=== PATIENT | male | born 1965 | race Caucasian/White ===

== ENCOUNTER 2020-01-12 02:11 | Outpatient (CLI) | payer OTHER, SELFPAY ==
--- NOTE | 2020-01-12 | DI.MRI_ITS ---
EXAM: MR UPPER JOINT RT WO CLINICAL HISTORY: EVALUATE CHRONIC PAIN, S43.421. TECHNIQUE: Multiplanar multisequence MRI was performed. COMPARISON: No exams were available for comparison FINDINGS: There is moderate spurring at the AC joint. There is some fluid within the AC joint. A small amount of fluid is seen in the subacromial-subdeltoid bursa and in the subcoracoid bursa. There is no visi ble joint effusion. There is abnormal high signal within the supraspinatus tendon as well as tendon thickening. There is a small focal undersurface tear. There is mild muscular atrophy. The infraspi natus, subscapularis and biceps tendons appear intact. No gross labral defects are seen. IMPRESSION: Supraspinatus tendinosis with small superimposed undersurface tear. DATA REPOSITORY:
== END 2020-01-12 02:31 ==
PROVIDERS: Visit Provider Specialist
DX: M25.511 Pain in right shoulder (principal); G89.29 Other chronic pain; M75.81 Other shoulder lesions, right shoulder; M75.101 Unspecified rotator cuff tear or rupture of right shoulder, not specified as traumatic; S43.421A Sprain of right rotator cuff capsule, initial encounter
CPT/HCPCS: 73221

== ENCOUNTER 2020-02-28 16:59 | Emergency (ER) | payer MEDICAID, SELFPAY ==
[2020-02-28] VITALS (26 sets, daily range): BP systolic 111–178; BP diastolic 70–121; PULSE 78–110; RESP 8–23; TEMP 36.7; O2SAT 90–100
[2020-02-28] MEDS: HYDROmorphone 2 MG/ML VIAL 1 MG IVP ×2 (17:21→17:41)
[2020-02-28] MEDS: Ondansetron 4 MG/2 ML VIAL IVP (17:22)
[2020-02-28] MEDS: Normal Saline 1,000 ML 1000 ML IV ×2 (17:22→18:03)
--- NOTE | 2020-02-28 17:25 | ED.GENADUL_ITS ---
Discharge Plan Disposition Patient Disposition: HOME Condition: Stable Discharge Details Chief Complaint: Abd Prob Clinical Impression: Epigastric abdominal pain Primary Care Provider: Staci Arreaga ED Provider: Margie Monroy Home Meds and New Rx's Prescriptions: New omeprazole 20 mg capsule,delayed release(DR/EC) 20 mg PO DAILY Qty: 7 RF: 0 sucralfate [Carafate] 1 gram tablet 1 gm PO BID Qty: 14 RF: 0 No Action metformin 1,000 mg Tablet 1,000 mg BID RF: 0 lisinopril 5 mg Tablet 5 mg DAILY RF: 0 glipizide 5 mg Tablet 5 mg DAILY RF: 0 Discharge Instructions Instructions: Epigastric Pain (ED) Additional Instructions: Drink plenty of fluids. Use medications as prescribed for possible ulcerative disease. Follow-up closely with your primary care doctor. Call for prompt follow-up. Please follow-up regarding the elevation of your liver function tests we discussed today Please follow-up tomorrow with ultrasound of your right upper quadrant to be sure gallbladder appears normal. Return to the emergency room immediately for increasing pain, return or worsening pain as discussed Medical Decision Making This is a 54-year-old patient presenting to the emergency room for acute complaints of abdominal pain. Patient reports 30 minutes abdominal pain which began is mild pain in the epigastric and became extremely sharp. Patient reports 30 minutes of 10 out of 10 abdominal pain in the epigastrium without any radiating symptoms. Patient denies radiation to his back, patient denies radiation toward other portions of his abdomen. Patient does report his abdomen feels somewhat distended. Patient denies headache or dizziness. Denies chest pain, difficulty breathing shortness of breath or wheezing. Patient denies nausea or vomiting associated. No hematuria or change in bowels recently. Patient has been eating and drink without throughout the day. Patient reports no history of similar. Patient reports his pain is 10 out of 10 at this time. Patient presents to the emergency room visibly uncomfortable. Patient reports onset of pain while he was sitting. No recent exertion. No recent abdominal pain trauma. Patient reports he does have a history of diabetes as well as history of smoking, patient no longer smokes. Patient takes glipizide, metformin as well as lisinopril. Patient does report he occasionally drinks a lcohol but has not drank in the last 3 days. Patient denies being a heavy drinker. Patient denies any other drug use. No other concerns or complaints at this time. On initial evaluation in the emergency room patient is again visibly uncomfortable, hypertensive complaining of mild distention of the abdomen and pain in the epigastric area. Will obtain IV access, plan to CT immediately given his complaints of pain and initial exam. My immediate concern is related to possible abdominal aorta aneurysm or rupture, versus perforated viscus. Patient denies any chest pain with difficulty breathing or shortness of breath. We will plan to obtain EKG when returning from CT as CT is able to take the patient now. IV access obtained. Dr. Santiago Evangelista did attempt bedside ultrasound prior to CT which was difficult given patient's movement prior to pain medication. Patient provided 1 mg of Dilaudid for comfort during imaging as well as Zofran. IV fluids began, 1 L of normal saline bolus. When patient returned from CT a second IV was obtained and a second liter of saline provided. Patient still obviously uncomfortable complaining of some improved pain now a 6 out of 10. A second milligram of Dilaudid was provided for patient's comfort. Patient reports significantly more comfortable after second milligram of Dilaudid. CT which was read stat reveals no acute findings or acute aortic pathology. Incidental finding of fatty liver and gallstones present. No pericolic cystic edema present. No surgical emergencies noted in the abdomen or chest. Patient's labs revealed mild leukocytosis of 12.68 with no previous comparisons in the computer. Sodium 133, anion gap of 12, blood sugar 290. Patient's LFTs are mildly elevated AST noted to be 81, ALT 188, alk phos 124. Normal bi lirubin. Lipase normal Patient's troponin is normal. Patient's EKG reveals a heart rate of 90, sinus rhythm, first-degree AV block with a HI interval of 220, frequent ectopic beats present. No specific ST segment changes or evidence of ST elevation [place]. This was reviewed with Dr. Santiago Evangelista. No previous EKG for comparison Reevaluation of patient reveals continued improvement. Will observe for several hours to be sure pain is not returning. Reevaluation reveals mild 2 out of 10 abdominal pain which is reported in the epigastrium. No significant change in sites of pain. Patient reports some mild cramping type pain. Will trial GI cocktail. GI cocktail improved pain from 2 out of 10 to 1 out of 10. Patient feels comfortable discharge home. We did discuss observation admission given his initial presentation to the emergency room however he feels comfortable being discharged home at this time, lives locally and can return for any worsening or return of pain. We will plan to provide prescription for Carafate as well as omeprazole given his reported improvement with GI cocktail for concern of possible ulcerative etiology of his epigastric pain. We will also plan to sched ule outpatient ultrasound for tomorrow to identify his gallbladder and be sure there is no acute findings however CT is reassuring at this time. Patient agrees with this plan of care. Patient feels hungry, would like to go home and eat dinner. Recommended bland diet. Patient's blood pressure significantly improved since arrival to the emergency room. Heart rate between the 90s and low 100s persists despite IV fluid. Patient's O2 saturations maintained and has no new complaints of chest pain. I doubt ACS given patient's presentation to the emergency room and initial troponin negative. We did discuss the possibility staying for second troponin however patient feels this is unnecessary as his complaints predominantly have been associated with his abdomen and pain was reproducible with palpation of the abdomen. Recommended close monitoring of his blood sugar. Patient feels stable for discharge home at this time. Disposition decision made weighing the risks and benefits of hospitalization versus outpatient treatment. The risk of frequent there are decompensation and the patient's wishes. Patient does desire discharge home at this time with plan to return for worsening symptoms if needed. Nothing to indicate intrathoracic or intra-abdominal emergency at this time. The patient was stable and requested discharge. Prior to discharge, my usual and customary return precautions were reviewed with the patient - this included follow-up instructions and reasons to return to the Emergency Department if conditions worsens, does not improve as expected, or other new concerns arise. HPI General Date/Time Provider Initiated Documentation: 02/28/20 17:02 . HPI Narrative: 54-year-old patient with a history of diabetes and an long history of smoking presents to the emergency room for complaints of severe acute onset of epigastric abdominal pain. Patient reports abdominal pain noted in the epigastrium. Patient reports mild discomfort followed by sharp pain which is been constant since. Patient does report he feels mildly distended at this time. Patient denies associated headache or dizziness. Patient does report he is feeling anxious. Denies associated chest pain. Denies any radiating pain into his back. Patient denies any history of similar. Patient reports onset of pain while at rest. No previous injury or trauma. Patient reports prior to onset of pain he was feeling well. Patient denies any recent urinary or bowel changes. Patient denies any numbness, tingling or weakness of extremities. Patient reports pain is severe 10 out of 10 at this time. Related Data Home Medications Medication Instructions Recorded Confirmed glipizide 5 mg DAILY 02/28/20 02/28/20 lisinopril 5 mg DAILY 02/28/20 02/28/20 metformin 1,000 mg BID 02/28/20 02/28/20 omeprazole 20 mg PO DAILY #7 cap 02/28/20 sucralfate [Carafate] 1 gm PO BID #14 tab 02/28/20 Previous Rx's Medication Instructions Recorded omeprazole 20 mg PO DAILY #7 cap 02/28/20 sucralfate [Carafate] 1 gm PO BID #14 tab 02/28/20 Allergies Allergy/AdvReac Type Severity Reaction Status Date / Time No Known Allergies Allergy Unverified 02/28/20 18:55 General Stated Complaint: Abd Prob BLANCA: 2 Review of Systems All systems reviewed & are unremarkable except as noted in HPI and below Constitutional Constitutional: Denies chills, Denies fatigue, Denies fever(s), Denies headache(s) and Denies malaise ENT Ears, Nose, Mouth, and Throat: Denies vertigo, Denies dizziness and Denies headache(s) Cardiovascular Cardiovascular: Denies chest pain, Denies syncope, Denies lightheadedness, Denies palpitations and Denies dyspnea Respiratory Respiratory: Denies cough and Denies dyspnea Gastrointestinal Gastrointestinal: Reports abdominal pain (Sharp, epigastric), Reports bloating, Denies constipation, Denies diarrhea, Denies nausea and Denies vomiting Genitourinary Genitourinary: Denies hematuria, Denies difficulty urinating, Denies urinary frequency, Denies urinary hesitancy and Denies urinary urgency Neurologic Neurologic: Denies vertigo, Denies dizziness, Denies syncope and Denies headache(s) Endocrine Endocrine: Denies fatigue and Denies palpitations [facility] Medical History Diabetes mellitus (Chronic) Hypertension (Chronic) Exam Narrative Exam Narrative: CONST: Patient in pain, visibly uncomfortable. Well hydrated. Alert and oriented. HENMT: Head nomocephalic, normal to inspection. Atraumatic. Hearing grossly normal. Nose normal to inspection. No rhinnorhea. Normal facial exam. Oral mucosa normal. Tounge normal. Dentition normal. Normal posterior oropharynx. Uvula midline. EYES: General normal appearance. Alignment normal. Eyelids normal. Conjunctiva normal. Sclera normal. NECK: Normal visual inspection. FROM. No lymphadenopathy. Trachea midline. No Midline tenderness. CHEST: Normal insepection of the chest. RESP: Normal respiratory effort. Speaking full sentences. No cough. No wheezing. No retractions. Clear to auscaltation. Breath sound equal and present bilaterally. CARDIO: No JVD. Normal PMI. Regular Rate. Regular Rhythm. Normal peripheral pulses. GI: Normal inspection of abdomen. Central obesity noted, patient reports mild distention. Soft. Moderate epigastric pain with palpation. Bowel sounds present in all 4 quadrants. No rebound. MUSCULOSKELETAL: Normal Gait. FROM of all extremities. Distal neurovascularly intact. Sensation intact distally. No lower extremity edema present SKIN: Normal. Dry. No rashes. NEURO: Alert and awake. Speech clear. PSYCH: Normal affect. Cooperative. Course Vital Signs Vital signs: Vital Signs Temperature 36.7 C 02/28/20 17:08 Pulse 102 H 02/28/20 17:08 Blood Pressure 173/121 H 02/28/20 17:08 Pulse Oximetry 100 02/28/20 17:08 Temperature 36.7 C 02/28/20 17:08 Temperature Source Skin 02/28/20 17:08 Pulse 102 H 02/28/20 17:08 Respiratory Effort Non-Labored 02/28/20 17:12 Blood Pressure 173/121 H 02/28/20 17:08 Blood Pressure Position Sitting 02/28/20 17:08 Pulse Oximetry 100 02/28/20 17:08 Oxygen Delivery Method Room Air 02/28/20 17:08 Oxygen Flow Rate 0 02/28/20 17:08 Pain Level 10 02/28/20 17:22 Comment 02/28/20 17:08
[2020-02-28 17:26] LABS: Abs Immature Grans 0.05 k/cumm (0.0-0.09); Absolute Basophil Count 0.05 k/cumm (0.0-0.2); Absolute Lymphocyte Count 4.17 k/cumm (1.2-3.4); Basophils % 0.4; Eosinophils % 1.6; HCT 45.3 % (40.0-50.0); HGB 16.1 g/dL (13.5-17.5); Immature Grans % 0.4 %; Lymphocytes % 32.9; Mean Corp. HGB Concentration 35.5 g/dL (32.0-36.0); Mean Corpuscular Hemoglobin 28.9 pg (27.0-33.0); Mean Corpuscular Volume 81.2 fL (80-95); Mean Platelet Volume 9.3 fL (8.0-11.0); Monocytes % 8.8; Neutrophils % 55.9; Platelet Count 343 x1000/uL (130-400); RBC 5.58 m/cumm (4.50-6.00); RBC Distribution Width 12.4 % (11.8-14.1); White Blood Cell Count 12.68 k/cumm (4.4-10.8)
[2020-02-28 17:27] LABS: Absolute Monocyte Count 1.12 k/cumm (0.11-0.7); Absolute Neutrophil Count 7.09 k/cumm (1.2-6.7)
[2020-02-28] MEDS: Normal Saline - Diluent 50 ML VIAL IV (17:29)
[2020-02-28] MEDS: Omnipaque 350 MG/ML 100 ML BTL IJ (17:30)
--- NOTE | 2020-02-28 17:30 | DI.CT_ITS ---
EXAM: CT THORAX ABD/PEL CTA TECHNIQUE: CT examination of the chest, abdomen, and pelvis was performed with bolus infusion of 100 cc of Omnipaque 350. COMPARISON: No exams were available for comparison FINDINGS: There is no evidence of a thoracic vascular injury. The lungs are clear. No pneumothorax or pleural effusion. No mediastinal hematoma. No adenopathy in the chest. Tracheobronchial tree appears intact. No evidence of pulmonary embolic disease. No evidence of acute consolidation of the lungs. The liver shows decreased attenuation consistent with hepatic steatosis. The spleen, and pancreas ap pear normal. Gallbladder and bile ducts are normal. Adrenals and kidneys are unremarkable. No evidence of urinary tract injury or obstruction. No abdominal or pelvic vascular injury seen. No abdominal or pelvic adenopathy. No significant abdomi nal wall hernia or hematoma. No focal bowel pathology. IMPRESSION: No significant abnormality of the chest, abdomen, or pelvis. Except for hepatic steatosis. DATA REPOSITORY: All CT scans at this facility are submitted to the National Radiology Data Registry (NRDR) Dose Index Registry (DIR) with the [employer] (A[employer]). RADIATION OPTIMIZATION: All CT scans at this facility use at least one of these dose optimization te chniques: automated exposure control; mA and/or kV adjustment per patient size (includes targeted exa ms where dose is matched to clinical indication); or iterative reconstruction.
[2020-02-28 17:42] LABS: ALT 188 U/L (16-63); AST 81 U/L (15-37); Albumin 4.5 g/dL (3.4-5.0); Alkaline Phosphatase 124 U/L (46-116); BUN 14 mg/dL (7-18); Bilirubin, Total 0.6 mg/dL (0.2-1.0); CREATININE 1.15 mg/dL (0.70-1.30); Calcium 9.6 mg/dL (8.5-10.1); Chloride 96 mmol/L (98-107); Glucose 290 mg/dL (74-106); Lipase 153 U/L (73-393); Potassium 3.9 mmol/L (3.5-5.1); Sodium 133 mmol/L (136-145); Total Protein 8.2 g/dL (6.4-8.2)
[2020-02-28 17:44] LABS: PTT Activated 22.9 sec (21.0-31.4); Prothrombin Time 9.9 sec (9.3-11.0)
--- NOTE | 2020-02-28 17:57 | DI.VRAD_ITS ---
PROCEDURE INFORMATION: Exam: CT Angiography Chest With Contrast Exam date and time: 02/28/2020 17:16 Age: 54 years old Clinical indication: Right-sided chest pain; Localized; Right upper quadrant (ruq); Patient HX: Severe abdominal pain, ruq most pain. No back pain. No abdominal surgeries. TECHNIQUE: Imaging protocol: Computed tomographic angiography of the chest with intravenous contrast. 3D rendering: MIP and/or 3D reconstructed images were created by the technologist. Radiation optimization: All CT scans at this facility use at least one of these dose optimization techniques: automated exposure control; mA and/or kV adjustment per patient size (includes targeted exams where dose is matched to clinical indication); or iterative reconstruction. Contrast material: OMNIPAQUE 350; Contrast volume: 100 ml; Contrast route: IV; COMPARISON: No relevant prior studies available. FINDINGS: Pulmonary arteries: No pulmonary emboli. Aorta: No aortic aneurysm. No aortic dissection. Lungs: No airspace consolidation. No suspicious pulmonary nodules or mass lesions. Pleural space: No pneumothorax. No pleural effusion. Heart: No cardiomegaly. No pericardial effusion. Lymph nodes: Mildly prominent lymph nodes paratracheal thoracic inlet measuring up to 12 mm short axis. Subcarinal lymph node mildly prominent 11 mm short axis. Bones/joints: Minor degenerative changes in the spine. No acute fracture or subluxation. Soft tissues: No suspicious lesions. IMPRESSION: 1. No acute findings. 2. Additional findings as described. PROCEDURE INFORMATION: Exam: CT Angiography Abdomen and Pelvis With Contrast Exam date and time: 02/28/2020 17:16 Age: 54 years old Clinical indication: Right-sided chest pain; Localized; Right upper quadrant (ruq); Patient HX: Severe abdominal pain, ruq most pain. No back pain. No abdominal surgeries. TECHNIQUE: Imaging protocol: Computed tomographic angiography of the abdomen and pelvis with intravenous contrast material. 3D rendering: MIP and/or 3D reconstructed images were created by the technologist. Radiation optimization: All CT scans at this facility use at least one of these dose optimization techniques: automated exposure control; mA and/or kV adjustment per patient size (includes targeted exams where dose is matched to clinical indication); or iterative reconstruction. Contrast material: OMNIPAQUE 350; Contrast volume: 100 ml; Contrast route: IV; COMPARISON: No relevant prior studies available. FINDINGS: Aorta: Extremely minor aortic atherosclerosis. No aneurysm or dissection. Celiac trunk and mesenteric arteries: No occlusion or significant stenosis. Renal arteries: Main and accessory right renal arteries are patent. Main and accessory left renal arteries are patent. Right iliac arteries: No occlusion or significant stenosis. Left iliac arteries: No occlusion or significant stenosis. Liver: Mildly heterogeneous fatty liver. No hepatic masses. Gallbladder and bile ducts: Cholelithiasis. No pericholecystic edema. Pancreas: No mass. No ductal dilation. Spleen: No splenomegaly. Adrenals: No mass. Kidneys and ureters: Tiny right renal probable cyst. No renal masses or hydronephrosis bilaterally. Stomach and bowel: No obstruction. No mucosal thickening. Appendix: No evidence of appendicitis. Intraperitoneal space: No free air. No significant fluid collection. Lymph nodes: No enlarged lymph nodes. Bladder: No mass. Reproductive: Unremarkable as visualized. Bones/joints: Mild degenerative changes in the spine. Mild to moderate distal lumbar neural foraminal stenosis. No acute fracture or subluxation. Soft tissues: No suspicious lesions. IMPRESSION: 1. No acute findings. No acute aortic pathology 2. Incidental findings include fatty liver, cholelithiasis. Dictated and Authenticated by: Radha Magallon MD. Ordering:NANO Hanson MD
[2020-02-28 18:02] LABS: Troponin I < 0.05 ng/Ml (<0.06)
--- NOTE | 2020-02-29 08:48 | NUR.NOTE ---
Nursing Note: REFERRAL FAXED TO [facility] FOR FOLLOW UP. ABEBE KU
== END 2020-02-28 21:14 | disposition home or self-care (01) ==
PROVIDERS: Emergency Provider Physician Assistant; PCP Nurse Practitioner Family
DX: R10.13 Epigastric pain (principal); E11.9 Type 2 diabetes mellitus without complications; I10 Essential (primary) hypertension; Z79.84 Long term (current) use of oral hypoglycemic drugs
CPT/HCPCS: 36415; 74177; 80053; 83690; 86850; 86900; 86901; 93005; 96361; 96374; 96375; 96376; 99285; 84484; 85025; 85610; 85730; 93010; J2405; J3490

== ENCOUNTER 2020-02-29 09:58 | Outpatient (CLI) | payer MEDICAID, SELFPAY ==
--- NOTE | 2020-02-29 | DI.US_ITS ---
EXAM: US ABDOMEN LIMITED CLINICAL HISTORY: RUQ PAIN, CHOLELITHIASIS ON CT, ? GB DISEASE TECHNIQUE: Ultrasound performed using standard protocol. COMPARISON: No exams were available for comparison FINDINGS: Right upper quadrant ultrasound was performed. Note is made of cholelithiasis. No gallbladder wall thickening, biliary dilatation, or pericholecystic fluid collection. There are findings consistent w ith hepatic steatosis with decreased through transmission of the hepatic parenchyma and increased ech ogenicity. Dependent portions of the liver nonvisualized. Right kidney is unremarkable. Pancreas poorly visualized. Abdominal aorta and IVC poorly visualized . IMPRESSION: Cholelithiasis and hepatic steatosis. No other significant findings. DATA REPOSITORY:
[2020-02-29 14:42] LABS: Abs Immature Grans 0.02 k/cumm (0.0-0.09); Absolute Basophil Count 0.04 k/cumm (0.0-0.2); Absolute Eosinophil Count 0.14 k/cumm (0.0-0.7); Absolute Lymphocyte Count 2.36 k/cumm (1.2-3.4); Absolute Monocyte Count 0.78 k/cumm (0.11-0.7); Basophils % 0.5; Eosinophils % 1.7; HCT 43.4 % (40.0-50.0); HGB 15.6 g/dL (13.5-17.5); Immature Grans % 0.2 %; Lymphocytes % 28.8; Mean Corp. HGB Concentration 35.9 g/dL (32.0-36.0); Mean Corpuscular Hemoglobin 29.4 pg (27.0-33.0); Mean Corpuscular Volume 81.7 fL (80-95); Mean Platelet Volume 9.1 fL (8.0-11.0); Monocytes % 9.5; Neutrophils % 59.3; Platelet Count 311 x1000/uL (130-400); RBC 5.31 m/cumm (4.50-6.00); RBC Distribution Width 12.4 % (11.8-14.1); White Blood Cell Count 8.19 k/cumm (4.4-10.8)
[2020-02-29 14:43] LABS: Absolute Neutrophil Count 4.86 k/cumm (1.2-6.7)
[2020-02-29 14:52] LABS: Prothrombin Time 10.1 sec (9.3-11.0)
[2020-02-29 14:59] LABS: ALT 214 U/L (16-63); AST 125 U/L (15-37); Albumin 4.3 g/dL (3.4-5.0); Alkaline Phosphatase 119 U/L (46-116); Anion Gap 9.5 mmol/L (3-11); BUN 10 mg/dL (7-18); Bilirubin, Total 0.8 mg/dL (0.2-1.0); CO2 25.5 mmol/L (21.0-32.0); CREATININE 0.97 mg/dL (0.70-1.30); Calcium 9.1 mg/dL (8.5-10.1); Chloride 98 mmol/L (98-107); Glucose 304 mg/dL (74-106); Lipase 125 U/L (73-393); Potassium 4.1 mmol/L (3.5-5.1); Sodium 133 mmol/L (136-145); Total Protein 8.1 g/dL (6.4-8.2)
== END 2020-02-29 10:18 ==
PROVIDERS: Surgery; PCP Nurse Practitioner Family; Visit Provider Physician Assistant
DX: R10.11 Right upper quadrant pain (principal); R10.13 Epigastric pain; K80.20 Calculus of gallbladder without cholecystitis without obstruction; K76.0 Fatty (change of) liver, not elsewhere classified
CPT/HCPCS: 36415; 80053; 83690; 76705; 85025; 85610

== ENCOUNTER 2020-03-15 08:27 | Outpatient (CLI) | payer MEDICAID, SELFPAY ==
[2020-03-16 18:38] LABS: COVID-19 RT-PCR UVMMC Result Negative (Negative)
== END 2020-03-15 08:47 ==
PROVIDERS: PCP Nurse Practitioner Family; Visit Provider Surgery
DX: Z11.59 Encounter for screening for other viral diseases (principal); Z01.818 Encounter for other preprocedural examination
CPT/HCPCS: U0003

== ENCOUNTER 2020-03-21 11:58 | Inpatient (IN) | payer MEDICAID, SELFPAY ==
[2020-03-21] VITALS (13 sets, daily range): BP systolic 128–172; BP diastolic 74–102; PULSE 75–94; RESP 9–20; TEMP 36–37.7; O2SAT 95–100
[2020-03-21] MEDS: Acetaminophen 500 MG TAB 1000 MG PO (07:51)
[2020-03-21] MEDS: Gabapentin 300 MG CAP PO (07:52)
[2020-03-21] MEDS: Lactated Ringers 1,000 ML 100 ML IV ×2 (08:00→09:56)
[2020-03-21] MEDS: PIPERACILLIN/TAZO 4.5 GM in Normal Saline 100 ML IVPB ×3 (09:05→20:02)
--- NOTE | 2020-03-21 11:23 | GB_PTH ---
PATIENT: Santiago Hansen LOC: [facility] Hoffman#:[id number] AGE/SX: 54/M ROOM: RE03/21/[address]: Evelia Barber : 1965 BED: A DIS: 03/22/2020 SPEC #: [id number] RECD: 03/21/20 13:01 STATUS: AMALIA RETobias #: [id number] NBA: 03/21/20 11:[address]: Evelia Barber DEPT: Surgical Specimen RECD BY: Brown Enriquez ENTERED: 03/21/20 13:01 SP TYPE: GB OTHR DR: Staci Arreaga Tissues: 1 - GALLBLADDER Procedures: GROSS AND MICRO LEVEL 3 Comments: [id number]
--- NOTE | 2020-03-21 11:32 | NUR.NOTE ---
1130: Informed by charge nurse, Kateryna Meza RN that OR called out and pt. was going to be admitted. Charge nurse contacted ride. This nurse took pt. belongings, which included a cell phone, wallet,glasses, medical folder, clothing, shoes and drinks pt. brought to PACU and gave them to Melinda Baird RN.Nursing Note:
--- NOTE | 2020-03-21 12:13 | ROE_ITS ---
Date of service: 03/21/20 Time of Service: 12:13 Operative Note Operative Note DATE OF PROCEDURE: 03/21/20 PRE-OP DIAGNOSIS: chronic fredi w/ stones POST-OP DIAGNOSIS: same low grade infection still present. PROCEDURE: lap fredi SURGEON: Felicia Messina [employer] OPERATOR: Felicia Dukes ANESTHESIA: GETA and local ESTIMATED BLOOD LOSS: 25 PATHOLOGY: other COMPLICATIONS: None Patient was transported to: PACU Patient's condition: stable Procedure Description: INDICATIONS: acute on chronic cholecystitis, cholelithiasis and is here today for laparoscopic cholecystectomy. Informed consent was obtained, explaining risks and benefits of the procedure including but not limited to bleeding, infection, pneumonia, blood clots, possible damage to bowel, bladder, blood vessels, bile ducts, possible open procedure, complications of general anesthesia and other unforetold complications. PROCEDURE: The patient agrees and is brought to the operative room suite and placed in supine position. Anesthesia was administered per the Department of Anesthesia. The patient did receive IV antibiotics. NG tube and Warren catheter are placed. The patient was prepped and draped in the usual sterile fashion using DuraPrep scrub solution. Pause for the cause was done. 20 mL of 1% buffered lidocaine was used for local anesthetization. A stab incision was made in the umbilicus and the Verres inserted. Drop test was positive and insufflation was begun. When 15 mm of pressure was noted on the monitor, the Veress was removed and #5 port inserted. The camera was inserted through the port and shows no damage to underlying structures. A 10 mm port was then placed in the epigastric position under direct visualization following creation of local field blocks as well as two 5 mm ports in the right upper quadrant. The omentum is adhered up to the GB. This is taken down w/ a combination of blunt and sharp dissection. The gallbladder fundus was grasped and retracted towards the right shoulder. Infundibulum was grasped and retracted laterally. The hepat-duodenal ligament is entered- this is thickened and edematous. But it is not woody adn the structure are redily dissected out. however, it is quite friable and bleeds very readily. The cystic duct and artery are dissected out and the most inferior portion of the gallbladder plate is removed from the liver and the critical view of safety was obtained after clearing away all fatty material. Endo Clips were placed across the duct and artery and these structures are divided. The remainder of the gallbladder was excised from the liver bed. The gallbladder was placed in a bag and brought out. Examination of the gallbladder shows indeed the cystic duct and artery to have been divided. The is moderate venous bleeding from the GB bed. This is cauterized and Kalpesh-seal is placed. The remainder of the abdomen was copiously irrigated with a liter of saline. All saline is removed. There is no bleeding or bile leakage from the liver bed or the clips sites. The Aubrey- Ramírez needle was used to close the 10 mm port site with an 0 Vicryl. All ports and instruments are removed. Pneumoperitoneum is evacuated and the port sites are monitored to make sure there is no bleeding at the time of desufflation. Port sites are irrigated and the skin is closed with 4-0 Monocryl in a running subcuticular fashion. Skin glue is applied. The patient tolerated the procedure well without complications, transferred to the recovery room in stable condition. FELICIA MESSINA, DO
[2020-03-21] MEDS: Normal Saline Flush 10 ML SYR IVP (12:44)
[2020-03-21] MEDS: HYDROmorphone 2 MG/ML VIAL IVP ×3 (12:44→13:18)
[2020-03-21] MEDS: HYDROcodone 5/Acetaminophen 325 TAB PO ×2 (14:19→20:02)
[2020-03-21] MEDS: Normal Saline 1,000 ML 125 ML IV (14:19)
[2020-03-21] MEDS: Insulin Aspart 300 UNITS/3 ML PEN SC (17:17)
[2020-03-21] MEDS: metFORMIN 500 MG TAB 1000 MG PO (17:17)
[2020-03-21] MEDS: Ketorolac 30 MG/ML VIAL IVP ×2 (17:18→23:53)
[2020-03-21] MEDS: Normal Saline Flush 10 ML SYR IV ×3 (17:19→23:54)
--- NOTE | 2020-03-21 18:28 | NUR.NOTE ---
Nursing Note:03/21/20 1348: pt transferred from PACU to [facility] via stretcher. hovermat used to transfer pt from stretcher to bed. BP 172/102, will recheck in 15 minutes. pt in 4/10 pain.
--- NOTE | 2020-03-21 22:50 | W.PM.PROGNOT ---
Date of Service Date of service: 03/21/20 Time of Service: 15:18 Subjective Subjective Interval history since last seen: Post Op Note The case is reviewed with the patient; findings and the procedure/surgery were reviewed with the patient. The pt has a low grade infection- probably present since his ED visit. So, I am going to keep him over night for IV abx and pain control. The Patient's condition has been reviewed with the RN. Vitals have all been stable. Pain is controlled. He is tolerating po's. The patient has been able to void since surgery- clear yellow urine in an adequate amount. Antibiotics:zosyn DVT prophylaxis:SCD adn ambulate GI prophylaxis:diet Constipation prophylaxis:MOM PHYSICAL EXAM GENERAL APPEARANCE: Alert, healthy appearance, oriented, in no acute distress SKIN: No rashes. HYDRATION: Well hydrated HEAD, EYES, EARS, NECK, AND THROAT: Head is normocephalic, pupils equal, round, reactive to light and accommodation, ocular movement intact, sclera clear and no jaundice or redness. Dentition intact. No eye pain. No thrush NECK: no sore throat. LUNGS: normal respiration, clear to auscultation Normal chest wall movement. No chest wall pain. HEART: Regular rate and rhythm. NSR and no ST or T waves changes. EXTREMITY: No edema or cyanosis ABDOMEN: dressings are clean dry and intact. appropriate pain at surgical site. + bowel sounds NEURO: no focal neuro deficits. The patient current medical condition and all orders reviewed with nursing. Patient is stable and doing well postOp and continue routine medical care. See orders. FELICIA MESSINA D.O. ? Objective Objective Clinical Data: Vital Signs Temperature 36.4 C L 03/21/20 15:30 Temperature Source Temporal Artery Scan 03/21/20 15:30 Pulse 94 H 03/21/20 15:30 Pulse Rhythm Regular 03/21/20 14:30 Respiratory Rate 18 03/21/20 15:30 Respiratory Effort Non-Labored 03/21/20 14:30 Respiratory Depth Normal 03/21/20 14:30 Respiratory Pattern Normal 03/21/20 14:30 Blood Pressure 156/78 H 03/21/20 15:30 Pulse Oximetry 95 03/21/20 15:30 Oxygen Delivery Method Room Air 03/21/20 15:30 Oxygen Flow Rate 0 03/21/20 15:30 Pain Level 7 04/29/20 20:09 Intake & Output 03/20/20 03/21/20 03/21/20 23:59 11:59 23:59 Intake Total 1100 / 2568.333 1468.333 / 2568.333 Output Total 1250 / 1250 Balance 1100 / 1318.333 218.333 / 1318.333 Weight 112.9 kg Intake: IV 1100 / 2068.333 968.333 / 2068.333 Oral 500 / 500 Output: Urine 1250 / 1250 Other: Urine Color Yellow Yellow Urine Appearance Clear Clear Urine Odor Normal Emesis Description None Voiding Methods Toilet
[2020-03-22] MEDS: PIPERACILLIN/TAZO 4.5 GM in Normal Saline 100 ML IVPB ×2 (02:32→09:13)
[2020-03-22] MEDS: Normal Saline 1,000 ML 125 ML IV (02:32)
[2020-03-22] MEDS: HYDROcodone 5/Acetaminophen 325 TAB PO ×3 (04:05→13:13)
[2020-03-22] MEDS: Ketorolac 30 MG/ML VIAL IVP ×2 (06:27→11:52)
[2020-03-22 08:00] VITALS: BP 136/80; PULSE 80; RESP 18; TEMP 37; O2SAT 95
[2020-03-22] MEDS: Lactobacillus Acidophilus CAP 1 CAP PO ×2 (09:13→13:13)
[2020-03-22] MEDS: metFORMIN 500 MG TAB 1000 MG PO (09:13)
[2020-03-22] MEDS: Lisinopril 5 MG TAB PO (09:13)
[2020-03-22] MEDS: glipiZIDE 5 MG TAB 10 MG PO (09:13)
--- NOTE | 2020-03-22 09:32 | W.PM.DS.N ---
Date of service: 03/22/20 Time of Service: 09:32 DS: Diagnosis Discharge Diagnosis (1) Gallstones without obstruction of gallbladder: Status: Acute Discharge Plan Disposition Patient Disposition: HOME Condition: Good Discharge Details Reason For Visit: ACUTE [place] Admit Date/Time: 03/21/20 11:58 Admit Provider: Evelia Barber Attending Provider: Evelia Barber Primary Care Provider: Staci Arreaga Hospital Course Hospital Course: Patient underwent a laparoscopic cholecystectomy following an episode of acute cholecystitis/cholelithiasis approximately 3 weeks ago. At the time of surgery he was still found to have a mild infection. He was kept overnight and on IV antibiotics he also had moderate bleeding from the gallbladder fossa and was kept overnight to monitor for bleeding. Today he doing well. He is tolerating a low-fat diabetic diet. He is up walking around. He has had no fever or chills. He has had no nausea vomiting. He was able to move his bowels. He said no chest pain shortness of breath or productive cough. He has no calf pain or swelling. He is just discharged home in stable and satisfactory condition. Patient verbalized understanding of all instructions. He is given instructions in wound care activity and warning signs. She will follow-up in the clinic with me in a week. He is given instructions on pain control. If he has any questions or concerns he should contact our office or go to the emergency department after hours. Home Meds and New Rx's Prescriptions: New ibuprofen 600 mg tablet 600 mg PO Q6H PRN (Reason: pain) Qty: 90 RF: 0 hydrocodone-acetaminophen 5-325 mg Tablet 1 tab PO Q4H PRN PRNQty: 15 RF: 0 Continued ondansetron HCl [Zofran] 4 mg tablet 4 mg PO Q6H PRN (Reason: nausea and vomiting) Qty: 10 RF: 0 metformin 1,000 mg Tablet 1,000 mg BID RF: 0 lisinopril 5 mg Tablet 5 mg DAILY RF: 0 glipizide 5 mg tablet 10 mg PO DAILY RF: 0 Discharge Instructions Instructions: Laparoscopic Cholecystectomy (GEN) Additional Instructions: Care after Gallbladder Surgery -You should walk frequently, gradually, increasing the distance. You may climb stairs, just go slowly. -You can take Advil 600mg 4 times a day with food for the first week for pain; you may take your prescription medication as prescribed-in addition to the Advil. Discontinue Advil if it hurts your stomach. Do not take Advil if you are intolerant to aspirin products or have stomach problems. ? Use an ice bag for the first 72 hours. This helps to decrease swelling, which causes pain. It is normal to be more sore/painful and swollen towards the end of the day and first thing in the morning. ? Use milk of magnesia or prune juice to prevent constipation (this is a particular side effect of pain medication). Do not allow yourself to become constipated. ? Avoid fatty or greasy foods; introduce these slowly, with care, after about 1 month. Follow the low-fat diet sheet that will be given to you at the office or hospital. ? Start out eating very small, bland amounts of food. Do not take pain pills on an empty stomach. It is all right if they get wet. They will be removed in the doctor?s office. ? Do not go swimming or sit in a hot tube for two weeks. ? There are no stitches to remove. ? Do not drive your car x72hrs and then only if you have no pain and can move freely. Do not drive if you are taking pain narcotic pain medications. ? You may resume sexual activity whenever pain and soreness subside, usually in 2 weeks. ? Do no lift anything over 5 lbs. for the first 10 days. Minimize strenuous activity for the next two weeks. ? You may return to work in one week, or when you feel able, provided you do not have to do any heavy lifting or prolonged standing. ? You should return to Dr. Barber?s office for a post-op appointment about one week after surgery. Please call the Surgical Clinic at: [phone] to schedule an appointment. My Medications for pain and nausea are: ibuprofen and ultram When to Call the Office: ? If the incision becomes red or swollen, or there is more than a little drainage from it. ? If you develop a temperature higher than 100.5 F. ? If your eyes turn yellow ? Vomiting and can?t keep fluids down Stand Alone Forms: Nursing Discharge Form Referrals: Evelia Barber DO [OSTEOPATHIC DOCTOR] - 03/30/20 11:00 am (at the office) Activity:: see above Equipment/Supplies:: No Equipment Needed Diet:: Carb Counting Discharge Orders Discharge Orders: Discharge Order (Routine); Ordered 03/22/20 Ordered By: Evelia aBrber Discharge Data Discharge Date/Time-TO BE ENTERED AT DEPARTURE: 03/22/20 14:11 DS: Summary Status at Discharge Functional status at discharge: independent ambulation Overall status at discharge: patient is back to baseline Mental Status: mental status grossly normal Speech and Movement: mute Mood: congruent mood Affect: normal affect Exam Narrative Exam Narrative: see progress notes Psych Mental Status: mental status grossly normal Speech and Movement: mute Mood: congruent mood Affect: normal affect DS: Data Vitals/I&O Vitals and I&O: Vital Signs Temperature 37.0 C 03/22/20 08:00 Temperature Source Temporal Artery Scan 03/22/20 08:00 Pulse 80 03/22/20 08:00 Pulse Rhythm Regular 03/22/20 03:38 Respiratory Rate 18 03/22/20 08:00 Respiratory Effort Non-Labored 03/22/20 03:38 Respiratory Depth Normal 03/22/20 03:38 Respiratory Pattern Normal 03/22/20 03:38 Blood Pressure 136/80 03/22/20 08:00 Pulse Oximetry 95 03/22/20 08:00 Oxygen Delivery Method Room Air 03/22/20 08:00 Oxygen Flow Rate 0 03/22/20 08:00 Pain Level 5 03/22/20 09:21 Intake & Output 03/21/20 03/21/20 03/22/20 11:59 23:59 11:59 Intake Total 1100 / 3568.333 2468.333 / 3568.333 200 / 200 Output Total 1250 / 1250 1300 / 1300 Balance 1100 / 2318.333 1218.333 / 2318.333 -1100 / -1100 Weight 112.9 kg Intake: IV 1100 / 3068.333 1968.333 / 3068.333 200 / 200 Oral 500 / 500 Output: Urine 1250 / 1250 1300 / 1300 Other: Urine Color Yellow Yellow Yellow Light Aleyda Urine Appearance Clear Clear Clear Urine Odor Normal Normal Emesis Description None Voiding Methods Toilet Toilet [facility] Medical History (Updated 03/22/20 @ 11:09 by Evelia Barber, DO) Cholelithiasis and acute cholecystitis without obstruction (Acute) Diabetes mellitus (Chronic) Diabetes mellitus type II, uncontrolled (Acute) Gallstones without obstruction of gallbladder (Acute) HTN (hypertension) (Chronic) Hx of difficult intubation (Acute) Per Pt Pre-op evaluation (Acute) Tear of rotator cuff of right hip (Acute) Surgical History History of back surgery (Acute) History of carpal tunnel release (Acute) Right History of hand surgery (Acute) Left History of wisdom tooth extraction (Acute) Social History Smoking/Tobacco Use Status: Former Tobacco Use Quit Date: 11/23/16 Alcohol Intake: current Alcohol Intake frequency: a few times a week Alcohol type: hard liquor Drug use: Occasionally Substance use type: marijuana Details: alcohol: t-5, one drink. marijuana: t-7, bowl Do you feel safe at home: Yes
--- NOTE | 2020-03-22 11:08 | W.PM.PROGNOT ---
Date of Service Date of service: 03/22/20 Time of Service: 11:09 Assessment and Plan Assessment and plan (1) Gallstones without obstruction of gallbladder: Status: Acute Assessment and plan: plan d/c home after 2pm d/w pt wound care/activity /diet and warning signs (2) Cholelithiasis and acute cholecystitis without obstruction: Status: Acute Assessment and plan: Care after Gallbladder Surgery -You should walk frequently, gradually, increasing the distance. You may climb stairs, just go slowly. -You can take Advil 600mg 4 times a day with food for the first week for pain; you may take your prescription medication as prescribed-in addition to the Advil. Discontinue Advil if it hurts your stomach. Do not take Advil if you are intolerant to aspirin products or have stomach problems. ? Use an ice bag for the first 72 hours. This helps to decrease swelling, which causes pain. It is normal to be more sore/painful and swollen towards the end of the day and first thing in the morning. ? Gallbladder surgery can make you very nauseated; use Zofran for nausea, for the first 24 hours. The nausea generally stops after 24 hours. ? Use milk of magnesia or prune juice to prevent constipation (this is a particular side effect of pain medication). Do not allow yourself to become constipated. ? Avoid fatty or greasy foods; introduce these slowly, with care, after about 1 month. Follow the low-fat diet sheet that will be given to you at the office or hospital. ? Start out eating very small, bland amounts of food. Do not take pain pills on an empty stomach. - You can remove the Band-Aids and take a shower 24 hours after surgery. There will be some narrow white strips of tape across your incisions (under the Band-Aids). DO NOT REMOVE THESE. It is all right if they get wet. They will be removed in the doctor?s office. ? Do not go swimming or sit in a hot tube for two weeks. ? There are no stitches to remove. ? Do not drive your car x72hrs and then only if you have no pain and can move freely. Do not drive if you are taking pain narcotic pain medications. ? You may resume sexual activity whenever pain and soreness subside, usually in 2 weeks. ? Do no lift anything over 5 lbs. for the first 10 days. Minimize strenuous activity for the next two weeks. ? You may return to work in one week, or when you feel able, provided you do not have to do any heavy lifting or prolonged standing. ? You should return to Dr. Barber?s office for a post-op appointment about one week after surgery. Please call the Surgical Clinic at: [phone] to schedule an appointment. My Medications for pain and nausea are: ibuprofen and ultram and zofran When to Call the Office: ? If the incision becomes red or swollen, or there is more than a little drainage from it. ? If you develop a temperature higher than 100.5 F. ? If your eyes turn yellow ? Vomiting and can?t keep fluids down Subjective Subjective Interval history since last seen: Pt is doing well. no headaches. No CP or SOB. no productive cough. no dysuria. no leg pain or swelling. He did have a bowel movement this morning. No weakness or dizziness or feeling faint. His vital signs have been stable. He has been up walking around. His pain is been well controlled. He is tolerating clear liquids without a problem and is hungry. Exam Narrative Exam Narrative: HEENT: no janudice. no eye pain/drainage/redness/swelling. mild sore throat cardio- NSR no chest pain, BP stable. pulm: no sob or productive cough. no hemoptysis insicion- clean/dry. no excessive bleeding or drainage. min pain. + BS Objective Objective Clinical Data: Vital Signs Temperature 37.0 C 03/22/20 08:00 Temperature Source Temporal Artery Scan 03/22/20 08:00 Pulse 80 03/22/20 08:00 Pulse Rhythm Regular 03/22/20 03:38 Respiratory Rate 18 03/22/20 08:00 Respiratory Effort Non-Labored 03/22/20 03:38 Respiratory Depth Normal 03/22/20 03:38 Respiratory Pattern Normal 03/22/20 03:38 Blood Pressure 136/80 03/22/20 08:00 Pulse Oximetry 95 03/22/20 08:00 Oxygen Delivery Method Room Air 03/22/20 08:00 Oxygen Flow Rate 0 03/22/20 08:00 Pain Level 5 03/22/20 09:21 Intake & Output 04/29/20 04/29/20 04/30/20 11:59 23:59 11:59 Intake Total 1100 / 3808.333 2708.333 / 3808.333 1180 / 1180 Output Total 1250 / 1250 1300 / 1300 Balance 1100 / 2558.333 1458.333 / 2558.333 -120 / -120 Weight 112.9 kg Intake: IV 1100 / 3068.333 1968.333 / 3068.333 200 / 200 Oral 740 / 740 980 / 980 Output: Urine 1250 / 1250 1300 / 1300 Other: Urine Color Yellow Yellow Yellow Light Aleyda Urine Appearance Clear Clear Clear Urine Odor Normal Normal Emesis Description None Voiding Methods Toilet Toilet
[2020-03-22 11:40] VITALS: BP 136/80; PULSE 80; RESP 18; TEMP 37; O2SAT 97
[2020-03-22] MEDS: Normal Saline Flush 10 ML SYR IV (11:53)
[2020-03-22] MEDS: Milk of Magnesia 30 ML CUP PO (11:53)
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
--- NOTE | 2020-03-22 19:44 | PDOC.CMDIS ---
- If Service Date Differs Date of service: 03/22/20 Time of Service: 19:44 LACE Index Scoring Tool - Questions: Length of Stay (in days): 2 Acuity (Admit via E.D.?): No Comorbidities: Diabetes w/o Complication E.D. Visits: 1 - Answers: Total Score: 4 Risk of Readmission: Low Risk Care Management Discharge Reason for Hospitalization: Acute [place] Discharge Plan: Santiago will return home with no additional services at this time. He will be drive home by his sister via private vehicle. He will follow up with surgery and his discharge plan of care. He is agreeable to returning home. Patient/Family Education Needs: Review discharge instructions regarding activity levels and medications, discussion of self care needs including ask me three.
== END 2020-03-22 14:11 | disposition home or self-care (01) | DRG 419 ==
LOC: MS 14:09
PROVIDERS: Admitting Provider Surgery; PCP Nurse Practitioner Family; Visit Provider Surgery
PROC: 0FT44ZZ Resection of Gallbladder, Percutaneous Endoscopic Approach (ICD-10-PCS; CPT 47562; principal; 2020-03-21 08:30)
DX: K80.12 Calculus of gallbladder with acute and chronic cholecystitis without obstruction (principal); B99.9 Unspecified infectious disease; I10 Essential (primary) hypertension; E11.65 Type 2 diabetes mellitus with hyperglycemia
CPT/HCPCS: 47562; 99239; NC; 88304; J0131; J1100; J1885; J2001; J2405; J2543

== ENCOUNTER 2020-05-29 15:10 | Outpatient (REF) | payer MEDICAID, SELFPAY ==
[2020-05-29 21:44] LABS: HCT 42.2 % (40.0-50.0); HGB 14.6 g/dL (13.5-17.5); Mean Corp. HGB Concentration 34.6 g/dL (32.0-36.0); Mean Corpuscular Hemoglobin 28.9 pg (27.0-33.0); Mean Corpuscular Volume 83.6 fL (80-95); Mean Platelet Volume 9.6 fL (8.0-11.0); Platelet Count 284 x1000/uL (130-400); RBC 5.05 m/cumm (4.50-6.00); RBC Distribution Width 13.1 % (11.8-14.1); White Blood Cell Count 5.17 k/cumm (4.4-10.8)
[2020-05-29 22:11] LABS: ALT 178 U/L (16-63); AST 110 U/L (15-37); Albumin 4.3 g/dL (3.4-5.0); Alkaline Phosphatase 105 U/L (46-116); Anion Gap 11.7 mmol/L (3-11); BUN 18 mg/dL (7-18); Bilirubin, Total 0.6 mg/dL (0.2-1.0); CO2 25.3 mmol/L (21.0-32.0); CREATININE 0.88 mg/dL (0.70-1.30); Calcium 9.3 mg/dL (8.5-10.1); Chloride 97 mmol/L (98-107); Glucose 284 mg/dL (74-106); Potassium 4.4 mmol/L (3.5-5.1); Sodium 134 mmol/L (136-145); Total Protein 7.6 g/dL (6.4-8.2)
[2020-05-29 22:21] LABS: Hemoglobin A1C 9.3 % (3.8-5.6)
== END 2020-05-29 15:30 ==
LOC: NCHCN 15:10
PROVIDERS: PCP Nurse Practitioner Family; Visit Provider Physician Assistant
DX: Z01.818 Encounter for other preprocedural examination (principal); Z13.1 Encounter for screening for diabetes mellitus; Z13.220 Encounter for screening for lipoid disorders; Z13.228 Encounter for screening for other metabolic disorders; Z13.0 Encounter for screening for diseases of the blood and blood-forming organs and certain disorders involving the immune mechanism
CPT/HCPCS: 80053; 85027; 83036; 85610

== ENCOUNTER 2020-06-08 08:18 | Outpatient (CLI) | payer MEDICAID, SELFPAY ==
[2020-06-10 17:23] LABS: COVID-19 RT-PCR Result NEGATIVE (Negative)
== END 2020-06-08 08:38 ==
PROVIDERS: Specialist; PCP Nurse Practitioner Family; Visit Provider Specialist
DX: Z11.59 Encounter for screening for other viral diseases (principal)
CPT/HCPCS: U0003

== ENCOUNTER 2021-12-04 15:18 | Outpatient (REF) | payer MEDICAID, SELFPAY ==
[2021-12-04 15:00] LABS: ALT 45 U/L (16-63); AST 24 U/L (15-37); Anion Gap 10.4 mmol/L (3-11); BUN 20 mg/dL (7-18); CO2 26.6 mmol/L (21.0-32.0); Calcium 9.4 mg/dL (8.5-10.1); Calculated LDL 82 mg/dL (<100); Chloride 98 mmol/L (98-107); Cholesterol 181 mg/dL (<200); Glucose 159 mg/dL (74-106); HDL Cholesterol 63 mg/dL (40-60); Potassium 4.4 mmol/L (3.5-5.1); Sodium 135 mmol/L (136-145); Triglyceride 180 mg/dL (<150)
== END 2021-12-04 15:19 | disposition home or self-care (01) ==
LOC: NCHCN 15:18
PROVIDERS: PCP Nurse Practitioner Family; Visit Provider Nurse Practitioner Family
DX: E11.9 Type 2 diabetes mellitus without complications (principal); K76.0 Fatty (change of) liver, not elsewhere classified
CPT/HCPCS: 80048; 80061; 84450; 84460

== ENCOUNTER 2023-01-16 15:11 | Outpatient (REF) | payer MEDICAID, SELFPAY ==
[2023-01-16 21:08] LABS: HCT 45.7 % (40.0-50.0); HGB 15.8 g/dL (13.5-17.5); MCH 28.5 pg (27.0-33.0); MCHC 34.6 % (32.0-36.0); MCV 83 fL (80-95); MPV 9.3 fL (8.0-11.0); Platelet Count 291 10^3/uL (130-400); RBC 5.54 10^6/uL (4.36-5.78); RDW 11.8 % (11.8-14.1); RDW-SD 35.7 fL; WBC 8.83 10^3/uL (4.4-10.8)
[2023-01-16 21:11] LABS: ALT 65 U/L (16-63); AST 30 U/L (15-37); Albumin 4.5 g/dL (3.4-5.0); Alkaline Phosphatase 111 U/L (46-116); Anion Gap 8.1 mmol/L (3-11); BUN 17 mg/dL (7-18); Bilirubin, Total 0.6 mg/dL (0.2-1.0); CO2 28.9 mmol/L (21.0-32.0); CREATININE 0.9 mg/dL (0.70-1.30); Calcium 9.6 mg/dL (8.5-10.1); Chloride 96 mmol/L (98-107); Estimated GFR 100.86 (mL/min/1.73m2); Glucose 216 mg/dL (74-106); Potassium 4.3 mmol/L (3.5-5.1); Sodium 133 mmol/L (136-145); Total Protein 7.8 g/dL (6.4-8.2)
[2023-01-19 10:09] LABS: PSA, Screening 0.3 ng/mL (<=3.5)
== END 2023-01-16 15:12 | disposition home or self-care (01) ==
LOC: NCHCN 15:11
PROVIDERS: PCP Nurse Practitioner Family; Visit Provider Nurse Practitioner Family
DX: E11.9 Type 2 diabetes mellitus without complications (principal); Z12.5 Encounter for screening for malignant neoplasm of prostate
CPT/HCPCS: 80053; 84153; 85027